=== PATIENT | male | born 1945 | race Caucasian/White ===

== ENCOUNTER 2021-07-25 09:40 | Observation (INO) | payer MEDICARE ==
[~2021-07-25] VITALS: Ht 170.2 cm; Wt 66.7 kg
[~2021-07-25 09:40] MED LIST: ADULT ASPIRIN81 MG; Z.0.CIPRO500 MG; Z.0.VICODIN 5-5001 E
[2021-07-25] MEDS ORDERED: SODIUM CHLORIDE 0.9% 1000ML 1,000 ML IV STA (10:07)
[2021-07-25 10:30] LABS: BASOPHILS % 0.3 % (0.0-1.0); EOSINOPHILS # (AUTO) 0.2 (0.0-0.4); HEMATOCRIT 38.3 % (38.2-49.6); HEMOGLOBIN 12.8 g/dL (14.0-18.0); LYMPHOCYTES # (AUTO) 0.6 (1.0-3.2); LYMPHOCYTES % 9.5 % (18.0-39.1); MEAN CORPUSCULAR HGB CONC 33.4 g/dL (31-35); MEAN CORPUSCULAR VOLUME 95.8 fL (81-99); MONOCYTES % 15.3 % (4.4-11.3); NEUTROPHILS # (AUTO) 4.8 (2.1-6.9); NEUTROPHILS % 71.8 % (38.7-80.0); PLATELET COUNT 164 x10e3/uL (140-360); RED CELL DISTRIBUTION WIDTH 12.2 % (11.7-14.4)
[2021-07-25 10:36] LABS: CLARITY,URINE CLOUDY (CLEAR); COLOR,URINE YELLOW (YELLOW); LEUKOCYTE ESTERASE ,URINE NEGATIVE (NEGATIVE); NITRITE,URINE NEGATIVE (NEGATIVE); PROTEIN,URINE DIPSTICK TRACE (NEGATIVE)
[2021-07-25 10:37] LABS: KETONES,URINE TRACE (NEGATIVE); URINE UROBILINOGEN 1 mg/dL (0.2 - 1)
[2021-07-25 10:56] LABS: RBC,URINE >50 /HPF (0-5)
[2021-07-25 10:57] LABS: BACTERIA,URINE FEW /HPF; EPITHELIAL CELLS,URINE FEW /LPF; MUCUS,URINE FEW (RARE)
[2021-07-25 10:59] LABS: INR 1.05; PROTHROMBIN TIME 14.6 seconds (11.9-14.5)
[2021-07-25 11:00] LABS: PARTIAL THROMBOPLASTIN TIME 39.1 seconds (23.8-35.5)
[2021-07-25 11:08] LABS: ALBUMIN 3.9 g/dL (3.5-5.0); ALBUMIN/GLOBULIN RATIO 1.1 (0.8-2.0); ANION GAP 11.9 mmol/L (8-16); CALCIUM 9.1 mg/dL (8.4-10.2); CREATININE, SERUM 0.84 mg/dL (0.72-1.25); POTASSIUM 3.9 mmol/L (3.5-5.1)
[2021-07-25 11:16] LABS: CREATINE KINASE MB 1.8 ng/mL (0-5.0)
[2021-07-25] MEDS: CEFTRIAXONE 1 GM in SODIUM CHLORIDE 0.9% 50ML 50 ML IV SCH ×2 (12:05→12:09)
[2021-07-25] MEDS ORDERED: ONDANSETRON HCL INJ 2MG/ML 2ML 2 MG/ML VIAL IV PRN ×2 (12:15→14:45)
[2021-07-25] MEDS ORDERED: CYCLOBENZAPRINE HCL 10 MG TAB PO PRN (12:45)
[2021-07-25] MEDS ORDERED: ACETAMINOPHEN 325 MG TAB PO PRN ×2 (12:45→14:45)
[2021-07-25 13:45] VITALS: BP 123/66
[2021-07-25 14:03] VITALS: BP 123/66
[2021-07-25 14:10] VITALS: BP 123/66
[2021-07-25] MEDS ORDERED: SODIUM CHLORIDE 0.9% 1000ML 1,000 ML ONE (14:38)
[2021-07-25] MEDS ORDERED: SIMETHICONE 80 MG CHEW PO PRN (14:45)
[2021-07-25] MEDS ORDERED: LIDOCAINE 4% PATCH TP PRN (14:45)
[2021-07-25] MEDS ORDERED: DOCUSATE SODIUM 100 MG CAP PO PRN (14:45)
[2021-07-25] MEDS ORDERED: DIPHENHYDRAMINE HCL 25 MG CAP PO PRN (14:45)
[2021-07-25] MEDS ORDERED: ALBUTEROL/IPRATROPIUM 3 ML NEB NEB PRN (14:45)
[2021-07-25] MEDS ORDERED: TRAMADOL HCL 50 MG TAB PO PRN (14:45)
[2021-07-25] MEDS ORDERED: DEXTROSE 50% SYRINGE 50 ML IV PRN (14:45)
[2021-07-25] MEDS ORDERED: HYDRALAZINE HCL 20 MG/ML VIAL IV PRN (14:45)
[2021-07-25] MEDS ORDERED: BENZONATATE 100 MG CAP PO PRN (14:45)
[2021-07-25] MEDS ORDERED: POTASSIUM CHLORIDE 20 MEQ TAB CR PO PRN (14:45)
[2021-07-25] MEDS ORDERED: MELATONIN 5 MG TABLET PO PRN (14:45)
[2021-07-25] MEDS: KETOROLAC TROMETHAMINE 30 MG/ML VIAL IV SCH ×2 (15:31→21:37)
[2021-07-25 15:48] VITALS: BP 117/68
[2021-07-25] MEDS ORDERED: ENOXAPARIN SOD INJ 40 MG/0.4 ML SYR SC SCH (17:00)
[2021-07-25] MEDS: FAMOTIDINE 20 MG/2 ML VIAL IV SCH (19:50)
[2021-07-25 20:00] VITALS: BP 112/62
[2021-07-25 20:21] LABS: CREATINE KINASE MB 1.3 ng/mL (0-5.0)
[2021-07-25 21:01] VITALS: BP 112/62
[2021-07-26] VITALS: BP 107/61
[2021-07-26 04:00] VITALS: BP 109/66
[2021-07-26] MEDS: FAMOTIDINE 20 MG/2 ML VIAL IV SCH (05:41)
[2021-07-26] MEDS: KETOROLAC TROMETHAMINE 30 MG/ML VIAL IV SCH ×2 (05:41→13:18)
[2021-07-26 06:50] LABS: BASOPHILS % 0.2 % (0.0-1.0); EOSINOPHILS # (AUTO) 0.1 (0.0-0.4); EOSINOPHILS % 1.4 % (0.0-6.0); HEMATOCRIT 34.6 % (38.2-49.6); HEMOGLOBIN 11.4 g/dL (14.0-18.0); LYMPHOCYTES # (AUTO) 0.8 (1.0-3.2); LYMPHOCYTES % 18.9 % (18.0-39.1); MEAN CORPUSCULAR HEMOGLOBIN 31.8 pg (28-32); MEAN CORPUSCULAR HGB CONC 32.9 g/dL (31-35); MEAN CORPUSCULAR VOLUME 96.6 fL (81-99); MONOCYTES # (AUTO) 0.8 (0.2-0.8); MONOCYTES % 17.3 % (4.4-11.3); NEUTROPHILS # (AUTO) 2.8 (2.1-6.9); PLATELET COUNT 135 x10e3/uL (140-360); RED BLOOD COUNT 3.58 x10e6/uL (4.3-5.7); RED CELL DISTRIBUTION WIDTH 12.4 % (11.7-14.4)
[2021-07-26] MEDS ORDERED: PANTOPRAZOLE SOD 40 MG TABEC PO SCH (07:30)
[2021-07-26 07:31] LABS: ANION GAP 8.7 mmol/L (8-16); CALCIUM 7.9 mg/dL (8.4-10.2); CREATININE, SERUM 1.01 mg/dL (0.72-1.25); POTASSIUM 3.7 mmol/L (3.5-5.1)
[2021-07-26 07:50] VITALS: BP 116/69
[2021-07-26 07:51] LABS: CHOL/HDL RATIO 3.9 (3.9-4.7)
[2021-07-26] MEDS: CEFTRIAXONE 1 GM in SODIUM CHLORIDE 0.9% 50ML 50 ML IV SCH (08:22)
[2021-07-26 08:34] LABS: MAGNESIUM 2.1 MG/DL (1.3-2.1)
[2021-07-26 08:42] LABS: CREATINE KINASE MB 1.4 ng/mL (0-5.0)
[2021-07-26 09:11] LABS: THYROID STIMULATING HORMONE 1.62 uIU/mL (0.350-4.940)
[2021-07-26 11:44] VITALS: BP 134/72
[2021-07-26 16:04] VITALS: BP 139/67
== END 2021-07-26 16:08 | disposition home or self-care (01) ==
LOC: ER 10:10 → ERHOLD 12:05 → MED/SURG3 13:35
PROVIDERS: ADMIT Internal Medicine; ATTEND Internal Medicine
DX: R55 Syncope and collapse (principal); G89.4 Chronic pain syndrome; R07.89 Other chest pain; I71.4 Abdominal aortic aneurysm, without rupture; I50.9 Heart failure, unspecified; Z87.891 Personal history of nicotine dependence; M54.50 Low back pain, unspecified; N39.0 Urinary tract infection, site not specified
CPT/HCPCS: 36415; 70450; 70551; 71045; 72125; 72131; 74176; 80053; 80061; 81001; 82550; 82553; 83735; 84443; 84484; 85025; 85610; 85730; 87086; 93005; 93306; 93880; 94799; 99283; G0378; J0696; J1885; J7030; U0002